=== PATIENT | male | born 1955 | race Caucasian/White ===

== ENCOUNTER 2017-11-26 08:28 | Day surgery (SDC) | payer BC ==
[~2017-11-26 08:28] MED LIST: EPINEPHRINE INJ 1 MG/10 ML DISP.SYRIN ONE; FLUMAZENIL INJ 0.5 MG/5 ML VIAL ONE; GLUCAGON,HUMAN RECOMB 1 MG INJ ONE; MIDAZOLAM 2 MG/2 ML INJ ONE; NALOXONE HCL INJ/PF 0.4 MG/1 ML SDV ONE; ONDANSETRON HCL INJ/PF 4 MG/2 ML SDV ONE
[2017-11-26] MEDS: MIDAZOLAM 2 MG/2 ML INJ ONE ×3 (08:42→08:54)
[2017-11-26] MEDS: FENTANYL CITRATE INJ/PF 100 MCG/2 ML AMPUL ONE ×2 (08:44→08:46)
--- NOTE | 2017-11-26 09:15 | Discharge Summary ---
Discharge Summary (SDC) - Discharge Final Diagnosis: Normal colonoscopy Date of Surgery: 11/26/17 Discharge Date: 11/26/17 Condition: Good Treatment or Instructions: [facility] [place] [address] POST ENDOSCOPY DISCHARGE INSTRUCTIONS 1. Diet: Start clear liquids that a regular diet as tolerated. 2. Resume all preoperative medications. All oral anticoagulants and aspirins can be resumed 24 hours after procedure. 3. If a polypectomy was performed some bleeding per rectum may occur. This should stop within 3 days. If not, please contact the office. 4. If you had a colonoscopy you may experience some bloating and delayed return of normal bowel function for several days, your regular bowel movement pattern should resume within a week. 5. Please contact [facility] at to make an appointment with Dr. Maddox for 1 to 3 weeks following procedure. 6. If you have any questions or concerns regarding your care,treatment plan or follow up, please contact our office. 7. Per clinical guidelines we recommend you undergo a repeat colonoscopy in 10 years. Discharge Diet: As Tolerated Discharge Activity: Activity As Tolerated Home Care Assistance: None Needed Report the Following to Your Physician Immediately: Shortness of Breath, Increase in Pain, Yellow Skin, Fever over 101 Degrees
--- NOTE | 2017-11-26 09:17 | Operative Report ---
Operative Report DATE OF SURGERY: 11/26/17 PREOPERATIVE DIAGNOSIS: Screening for colon cancer POSTOPERATIVE DIAGNOSIS: Normal: OPERATION: Total colonoscopy to cecum photodocumentation SURGEON: KIRSTIE POWELL ANESTHESIA: Moderate Sedation TISSUE REMOVED OR ALTERED: None COMPLICATIONS: None ESTIMATED BLOOD LOSS: None INTRAOPERATIVE FINDINGS: See below PROCEDURE: Obtaining informed consent the patient was taken from the preoperative holding area to the main endoscopy suite where monitoring devices were attached to the patient. Plan and surgical timeout were conducted The patient was placed in the left lateral decubitus position with knees to chest. A perianal examination was performed. There was no visible or palpable anorectal pathology. Sphincter tone was felt to be normal. The flexible adult colonoscope was advanced through the anal rectal canal, all the way to the cecum. Visualization of the cecum was achieved and the ileocecal valve, the appendiceal orifice and transillumination of the anterior abdominal wall. This was an excellent study on the well-prepped bowel. The colonoscope was withdrawn slowly and methodically checked and the mucosa carefully. There was no evidence of tumor, stricture, bleeding or polyp. There was no evidence of diverticuloses. The scope was slowly withdrawn through the anal rectal canal. Complete visualization of the rectum was achieved with photodocumentation. Of note there was a right perianal fibroepithelial polyp, incidental finding. The scope was withdrawn to the patient's anus. The patient tolerated the procedure well and was taken to the recovery area in stable condition. Per screening guidelines, patient be appropriate candidate for follow-up colonoscopy in 10 years
[2017-11-26 10:08] VITALS: BP 114/69
== END 2017-11-26 10:15 | disposition home or self-care (01) ==
LOC: END 08:28
PROVIDERS: ATTEND Surgery
PROC: 0DJD8ZZ Inspection of Lower Intestinal Tract, Via Natural or Artificial Opening Endoscopic (ICD-10-PCS; principal; 2017-11-26 09:00)
DX: Z12.11 Encounter for screening for malignant neoplasm of colon (principal); K40.90 Unilateral inguinal hernia, without obstruction or gangrene, not specified as recurrent
CPT/HCPCS: 45378; J2250; J0171; J3010; J1610; J2310; J2405; J3490

== ENCOUNTER 2017-12-30 05:37 | Day surgery (SDC) | payer BC ==
[2017-12-23 10:41] LABS: HEMATOCRIT 44.2 % (37.9-51.0); HEMOGLOBIN 15.1 g/dL (13.5-17.0); MEAN CORPUSCULAR HEMOGLOBIN 29.6 pg (27.0-33.4); MEAN CORPUSCULAR HGB CONC 34.2 g/dL (32.0-36.0); MEAN CORPUSCULAR VOLUME 87 fl (80-97); PLATELET COUNT 251 10^3/uL (150-450); RED BLOOD COUNT 5.11 10^6/uL (4.35-5.55); RED CELL DISTRIBUTION WIDTH 12.8 % (11.5-14.0); WHITE BLOOD COUNT 5.2 10^3/uL (4.0-10.5)
--- NOTE | 2017-12-23 11:56 | RADIOLOGY REPORT (SQ) ---
EXAM DESCRIPTION: CHEST PA/LATERAL COMPLETED DATE/TIME: 12/23/2017 10:02 am REASON FOR STUDY: PRE OP COMPARISON: None. EXAM PARAMETERS: NUMBER OF VIEWS: two views TECHNIQUE: Digital Frontal and Lateral radiographic views of the chest acquired. RADIATION DOSE: NA LIMITATIONS: none FINDINGS: LUNGS AND PLEURA: No opacities, masses or pneumothorax. No pleural effusion. MEDIASTINUM AND HILAR STRUCTURES: No masses or contour abnormalities. HEART AND VASCULAR STRUCTURES: Heart normal size. No evidence for failure. BONES: No acute findings. HARDWARE: None in the chest. OTHER: No other significant finding. IMPRESSION: NO SIGNIFICANT RADIOGRAPHIC FINDING IN THE CHEST. TECHNICAL DOCUMENTATION: JOB ID: [id number] [employer]- All Rights Reserved Reading location - IP/workstation name: [email or web address]
--- NOTE | 2017-12-23 12:55 | EKG REPORT ---
SEVERITY:- NORMAL ECG - SINUS RHYTHM : Confirmed by: Niall Quinonez MD 23-Dec-2017 12:54:28
[~2017-12-30 05:37] MED LIST changes: +ACETAMINOPHEN 325 MG TABLET PO PRN; +CEFAZOLIN 1 GM/D5W RTU 1 GM/50 ML RTUPB IV PRN; -EPINEPHRINE INJ 1 MG/10 ML DISP.SYRIN ONE; -FLUMAZENIL INJ 0.5 MG/5 ML VIAL ONE; -GLUCAGON,HUMAN RECOMB 1 MG INJ ONE; +LACTATED RINGERS 1000 ML IV PRN; +LIDOCAINE 0.5% INJ-PF (5 MG/ML) 50 ML SDV SUBCUT PRN; -MIDAZOLAM 2 MG/2 ML INJ ONE; -NALOXONE HCL INJ/PF 0.4 MG/1 ML SDV ONE; -ONDANSETRON HCL INJ/PF 4 MG/2 ML SDV ONE
[2017-12-30] MEDS ORDERED: BUPIVACAINE HCL 0.25 % INJ/PF (2.5 MG/1 ML) 30 ML VIAL ONE ×2 (07:10→07:11)
[2017-12-30] MEDS ORDERED: FENTANYL CITRATE INJ/PF 100 MCG/2 ML AMPUL ONE (07:10)
[2017-12-30] MEDS ORDERED: MIDAZOLAM 2 MG/2 ML INJ ONE (07:11)
[2017-12-30] MEDS ORDERED: EPHEDRINE SULFATE INJ 50 MG/1 ML AMPULE ONE (07:11)
[2017-12-30] MEDS ORDERED: PROPOFOL INJ 200 MG/20 ML VIAL IV ONE (07:11)
[2017-12-30] MEDS ORDERED: ACETAMINOPHEN 100 ML IV ONE (07:11)
[2017-12-30] MEDS ORDERED: BUPIVACAINE INJ/PF LIPOSOME/PF 266 MG/20 ML SDV ONE (07:37)
[2017-12-30] MEDS ORDERED: OXYCODONE-ACETAMINOPHEN 5-325 MG TABLET PO PRN ×2 (07:59)
[2017-12-30] MEDS ORDERED: DIPHENHYDRAMINE HCL 50 MG/ML VIAL IV PRN (07:59)
[2017-12-30] MEDS ORDERED: MORPHINE SULFATE 10 MG/ML INJ IV PRN (07:59)
[2017-12-30] MEDS ORDERED: FENTANYL CITRATE INJ/PF 100 MCG/2 ML AMPUL IV PRN ×3 (07:59)
[2017-12-30] MEDS ORDERED: PROMETHAZINE HCL INJ 25 MG/1 ML VIAL IV PRN ×2 (07:59)
[2017-12-30] MEDS ORDERED: MEPERIDINE HCL/PF INJ 25 MG/1 ML DISP.SYRIN IV PRN (07:59)
[2017-12-30] MEDS ORDERED: BUPIVACAINE INJ/PF LIPOSOME/PF 266 MG/20 ML SDV INJ ONE (08:32)
--- NOTE | 2017-12-30 09:17 | Discharge Summary ---
Discharge Summary (SDC) - Discharge Final Diagnosis: Left inguinal hernia Date of Surgery: 12/30/17 Discharge Date: 12/30/17 Condition: Stable Treatment or Instructions: [facility] [address], [place] [address] Discharge Instructions: Open Abdominal Procedures (Hernia, Bowel Surgery) 1.General Information: a. DO NOT DRIVE a car or operative machinery for 1-2 weeks or as long as taking Narcotic pain medication. b. DO NOT consume alcohol, tranquilizers, sleeping medication, or any non- prescribed medication for 24 hours unless approved by your doctor or as long as taking pain medication. c. DO NOT make important decisions or sign any important papers for the first 24 hours after surgery. d. When discharged home the same day as surgery have a responsible person with you the first night. 2.Activity Restriction: 8 weeks; a. Avoid heavy lifting (> 10-15 lbs), straining abdominal muscles and sports, mowing lawn, vacuum bobbin cleaner and bending over a lot. b. Walking is important to avoid blood clots in the legs and deep breathing can prevent pneumonia. c. If it fine to go for walks, up and down steps, and ride in a car. 3.Treatment: a. You may shower in 24 hours, but you should not bathe in a tub or go swimming for 2 weeks. Leave skin glue intact. c. Do not use oils, powders, or lotion on your incision. 4.Medications: a. You may take narcotic prescription tablets for pain if needed, one every 6 hours (_Toradol_). c. You may resume all normal medications unless a change is specified by your doctors. 5.Diet: a. If going home the same day as surgery start with clear liquids, and if you do well then advance to normal foods low inf fat and protein. Smaller portion size may be leonardo the first night. 6.Notify Physician If: a. Pain is not relieved by pain medication b. Persistent nausea and vomiting c. Chills, fever (above 101) d. Persistent bleeding or swelling at the operative site e. Unable to urinate for 6-8 hours f. Increased redness, drainage, or foul smelling discharge from incision 7. Follow Up Care: a. Please call our office to schedule an appointment with your doctor for 2 weeks. In the event of any postoperative problems or questions you may call our office during business hours or the On-Call surgeon through the continuous miner operator helper at [facility]. [facility] [phone] [facility] [phone] (Ask for the surgeon director of rehabilitation) b. I understand the instructions for my postoperative care as described above and a copy has been given to me. _ Witness Patient/Significant Other Date Prescriptions: Ketorolac Tromethamine [Toradol 10 mg Tablet] 10 mg PO Q6HP PRN #20 tablet PRN Reason: Discharge Diet: As Tolerated Discharge Activity: No Lifting Over 10 Pounds, No Lifting/Push/Pulling, Walk Frequently Report the Following to Your Physician Immediately: Nausea, Vomiting, Fever over 101 Degrees, Unusual Bleeding, Redness, Increased Soreness, Drainage-Foul Smelling
--- NOTE | 2017-12-30 09:23 | Operative Report ---
Operative Report DATE OF SURGERY: 12/30/17 PREOPERATIVE DIAGNOSIS: Left inguinal hernia POSTOPERATIVE DIAGNOSIS: Same, indirect OPERATION: Left inguinal exploration, left inguinal herniorrhaphy with [facility] Prolene hernia system SURGEON: KIRSTIE POWELL 1ST MUSIC ADAPTER: ELAINA HYDE ANESTHESIA: GA TISSUE REMOVED OR ALTERED: Sac, portion thereof; lipoma of the cord COMPLICATIONS: None ESTIMATED BLOOD LOSS: Scant INTRAOPERATIVE FINDINGS: See below PROCEDURE: Patient was taken from the preop holding her urine with general anesthesia was induced. Arms were abducted, genitalia prepped and draped in sterile fashion following hair clipping. Surgical plan surgical timeout conducted. Landmarks were identified, skin anesthetized with quarter percent Marcaine. Approximately 5 cm long incision was made #10 blade. Subcutaneous tissue, Raysa's fascia divided with electrocautery. Deeper tissues were anesthetized, and the external oblique aponeurosis exposed. The external inguinal ring was patulous with overlying thin fascia. We opened up the external oblique aponeurosis and it was apparent that a small branch of the ilioinguinal nerve which was very small diameter and was taken during the opening of the ring. We developed the superior and inferior fascial flaps, and mobilized the entire contents of the inguinal canal bluntly. The findings are significant for a weakend but intact medial floor. The Pedro loop drain was placed around the cord contents, and the contents interrogated. We immediately identified a well- defined indirect inguinal hernia sac which was fully dissected off of the surrounding structures. The sac was opened, and the distal third allowed to retract in the direction of the testicle. The proximal two thirds was carefully dissected up towards the internal inguinal ring. The sac was interrogated and it communicated freely with the peritoneal cavity. We also use this as an opportunity to palpate the floor the inguinal canal medially. The sac was rotated on its base and oversewn with a 2-0 Vicryl suture and amputated. This portion of the sac was sent to pathology. In addition, there was a generous cord lipoma extending down along the cord structures. 75% of it was removed with electrocautery with the distal portion amputated between clamps and 2-0 Vicryl ties. The proximal portion of the cord lipoma was resected, tying off its vascular pedicle adjacent to the internal ring with a 2-0 Vicryl suture. We now interrogated the floor the inguinal canal laterally. Of note the inferior epigastric vessels were not visualized during the dissection. Nonetheless, the hernia was felt to be of the indirect variety. We identified a small hole in the peritoneum, approximately 1 cm medial to the 2-0 Vicryl ligation used to close the hernia sac. This was used as a point of dissection from which we the retroperitoneum from the transversalis fascia. The small defect was oversewn with a 2-0 Vicryl suture. I now liberally opened up the retroperitoneal space bluntly using retractors and finger dissection in anticipation of mesh deployment. There was no significant bleeding. The peritoneum came away from the pelvic brim satisfactorily. Now brought onto the field a non- large [facility] Prolene hernia system, rolled it and deployed the inner component it into the developed retroperitoneal space. The mass was splayed out in a circumferential fashion. Now the external component was trimmed to the appropriate configuration, to reconstruct now the floor the inguinal canal. The mesh was sewed to Poupart's ligament and conjoined tendon and lacunar ligament using approximately 8 interrupted 0 and upside down U was created to re-create the internal ring, and accommodate the cord structures. There was no significant tension here. During this process, the remnant of the inguinal nerve was tied off with a 2-0 Vicryl suture with the intent of minimizing neuroma formation. Again this was a very small nerve. At this point felt the operation was complete. External oblique aponeurosis closed along the direction of its fibers with 2-0 Vicryl suture, Raysa's fascia and skin approximated 2-0 Vicryl 3-0 Vicryl. Wound closed with Dermabond glue. 20 cc of full-strength Exparel deployed in the subcutaneous tissues. Patient tolerated procedure well, extubated, taken recovery in stable condition. The physician business banking sales assistant, Ms. Esquivel, provided assistance during this case by: Assisting with retracting tissue, instillation of local anesthesia and closure of skin incisions.
[2017-12-30 11:05] VITALS: BP 136/82
[2017-12-30] MEDS ORDERED: ONDANSETRON HCL INJ/PF 4 MG/2 ML SDV ONE (11:58)
[2017-12-30] MEDS ORDERED: DEXAMETHASONE SOD PHOSPHATE INJ 4 MG/1 ML VIAL ONE (11:58)
[2017-12-30] MEDS ORDERED: GLYCOPYRROLATE INJ 0.4 MG/2 ML VIAL ONE (11:58)
[2017-12-30] MEDS ORDERED: NEOSTIGMINE METHYLSULFATE 10 MG/10 ML VIAL ONE (11:58)
[2017-12-30] MEDS ORDERED: ROCURONIUM BROMIDE INJ 50 MG/5 ML VIAL IV ONE (11:58)
[2017-12-30] MEDS ORDERED: SUCCINYLCHOLINE CHLORIDE INJ 200 MG/10 ML VIAL ONE (11:58)
== END 2017-12-30 10:55 | disposition home or self-care (01) ==
LOC: OROUT 05:37
PROVIDERS: ATTEND Surgery
DX: K40.90 Unilateral inguinal hernia, without obstruction or gangrene, not specified as recurrent (principal); D17.6 Benign lipomatous neoplasm of spermatic cord
CPT/HCPCS: 93005; 36415; 85027; 88302 ×2; 71046; 93010; 49505; C1781; J2250; J0690; J3490; J1100; J3010; J0330; J2405; J2704; J0131; C9290; 830